=== PATIENT | female | born 1975 | race Caucasian/White ===

== ENCOUNTER 2017-03-04 09:32 | Emergency (ER) | payer OTHER ==
[~2017-03-04] VITALS: Ht 162.6 cm; Wt 66.5 kg
[~2017-03-04 09:32] MED LIST: ATARAX,VISTARIL50 MG PO; CLONIDINE HCL0.1 MG PO; KEFLEX500 MG PO; TORADOL10 MG PO; VICODIN 5-3001 EACH PO
[2017-03-04] MEDS ORDERED: MOTRIN800 MG PO (11:10)
[2017-03-04] MEDS ORDERED: KEFLEX500 MG PO (11:10)
[2017-03-04 11:19] VITALS: BP 125/73
== END 2017-03-04 11:21 | disposition home or self-care (01) ==
LOC: EME 09:32
PROC: 3E0234Z Introduction of Serum, Toxoid and Vaccine into Muscle, Percutaneous Approach (ICD-10-PCS; principal; 2017-03-04)
DX: S61.200A Unspecified open wound of right index finger without damage to nail, initial encounter (principal); W31.82XA Contact with other commercial machinery, initial encounter; Y99.0 Civilian activity done for income or pay; Z23 Encounter for immunization; F17.200 Nicotine dependence, unspecified, uncomplicated
CPT/HCPCS: 73140; 99281; 99283